=== PATIENT | male | born 1980 | race Two or more races ===

== ENCOUNTER 2024-05-18 06:14 | Emergency (ER) | payer OTHER ==
[~2024-05-18] VITALS: Ht 175.3 cm; Wt 113.6 kg
[2024-05-18] MEDS: orphenadrine citrate 60mg/2ml inj. IM ONE (07:13)
[2024-05-18] MEDS: ketorolac trometh 30MG/ML vial 30 MG/ML VIAL IM ONE (07:13)
[2024-05-18] MEDS ORDERED: CYCL-1 PO (08:13)
[2024-05-18 08:26] VITALS: BP 145/76; PULSE 75; RESP 16; TEMP 98.4; O2SAT 99
== END 2024-05-18 08:25 | disposition home or self-care (01) ==
LOC: ER 06:15
DX: M54.9 Dorsalgia, unspecified (principal)
CPT/HCPCS: 71046; 72070; 96372; 99284; J1885; J2360